=== PATIENT | female | born 1965 | race Caucasian/White ===

== ENCOUNTER 2018-11-04 08:31 | Day surgery (SDC) | payer OTHER ==
[2018-11-04] MEDS ORDERED: ENOXAPARIN SODIUM 40 MG/0.4 ML DISP.SYRIN SQ ONE (08:46)
[2018-11-04] MEDS ORDERED: SCOPOLAMINE HYDROBROMIDE 1.5MG/72HR PATCH TD ONE ×2 (08:46→08:48)
[2018-11-04] MEDS ORDERED: LACTATED RINGERS 1,000 ML IV ONE (08:47)
[2018-11-04] MEDS ORDERED: LEVALBUTEROL HCL 1.25 MG/3 ML AMPUL.NEB NEB ONE (08:47)
[2018-11-04] MEDS ORDERED: FAMOTIDINE 20 MG/2 ML VIAL ONE ×2 (08:47→08:48)
[2018-11-04] MEDS ORDERED: LACTATED RINGERS 1,000 ML IV.SOLN IV ONE ×2 (08:48)
[2018-11-04] MEDS ORDERED: ROCURONIUM BROMIDE 10 MG/ML 5ML VIAL ONE (08:48)
[2018-11-04] MEDS ORDERED: PROPOFOL 200 MG/20 ML VIAL IV ONE (08:48)
[2018-11-04] MEDS ORDERED: ACETAMINOPHEN 1,000 MG/100 ML INJ IV ONE (08:48)
[2018-11-04] MEDS ORDERED: SUGAMMADEX SODIUM 200 MG/2 ML VIAL IV ONE (08:48)
[2018-11-04] MEDS ORDERED: PROMETHAZINE HCL 25 MG/ML VIAL ONE ×2 (08:48→12:58)
[2018-11-04] MEDS ORDERED: HYDROmorphone HCL/PF 1 MG/ML VIAL ONE (08:48)
[2018-11-04] MEDS ORDERED: ONDANSETRON HCL/PF 4 MG/ 2ML VIAL ONE (08:48)
[2018-11-04] MEDS ORDERED: LIDOCAINE HCL 2% PF 100MG/5ML VIAL IJ ONE (08:48)
[2018-11-04] MEDS ORDERED: DESFLURANE 240 ML LIQUID IH ONE (08:48)
[2018-11-04] MEDS ORDERED: CLINDAMYCIN PHOSPHATE 900 MG/6 ML VIAL ONE (08:48)
[2018-11-04] MEDS ORDERED: DEXAMETHASONE SOD PHOS 4 MG/ML VIAL ONE (08:48)
[2018-11-04] MEDS ORDERED: FENTANYL CITRATE/PF 250 MCG/5 ML INJ. ONE (10:09)
[2018-11-04] MEDS ORDERED: MIDAZOLAM HCL 2 MG/2 ML VIAL ONE (10:09)
[2018-11-04] MEDS ORDERED: HYDROmorphone HCL/PF 2 MG/ML VIAL ONE (12:56)
[2018-12-05] MEDS ORDERED: MIDAZOLAM HCL 2 MG/2 ML VIAL ONE (10:05)
[2018-12-05] MEDS ORDERED: FENTANYL CITRATE/PF 250 MCG/5 ML INJ. ONE (10:05)
== END 2018-11-04 14:08 | disposition other institution (70) ==
LOC: OPSURG 08:31
PROVIDERS: ATTEND Surgery
DX: E66.01 Morbid (severe) obesity due to excess calories (principal); Z68.43 Body mass index [BMI] 50.0-59.9, adult; E11.9 Type 2 diabetes mellitus without complications; I10 Essential (primary) hypertension; G47.30 Sleep apnea, unspecified; K44.9 Diaphragmatic hernia without obstruction or gangrene
CPT/HCPCS: 43235; J1100; J1170; J1650; J2001; J2250; J2405; J2550; J2704; J7614; 43775; A9270-GY; J7120

== ENCOUNTER 2018-11-04 14:09 | Inpatient (IN) | payer OTHER ==
[2018-11-04] MEDS ORDERED: 0.9 % SODIUM CHLORIDE 1,000 ML IV ONE (14:14)
[2018-11-04] MEDS ORDERED: LEVALBUTEROL HCL 1.25 MG/3 ML AMPUL.NEB NEB PRN (14:18)
[2018-11-04] MEDS ORDERED: HYDROcodone /APAP 10/325 1 EACH TABLET PO PRN (14:18)
[2018-11-04] MEDS ORDERED: ACETAMINOPHEN 1,000 MG/100 ML INJ IV PRN (14:18)
[2018-11-04] MEDS ORDERED: PROMETHAZINE HCL 25 MG in 0.9 % SODIUM CHLORIDE 50 ML IV PRN (14:18)
[2018-11-04 14:41] VITALS: BMI 34.2
[2018-11-04 14:52] LABS: MEAN CORPUSCULAR HEMOGLOBIN 28.3 pg (28.0-34.0); MONOCYTES % 1.1 % (0.0-11.0)
[2018-11-04 14:53] LABS: BASOPHILS % 0.3 (0.0-1.5); EOSINOPHILS % 1.2 % (0.0-6.8); NEUTROPHILS # 11.5 # k/uL (1.4-7.7)
[2018-11-04] MEDS: 0.9 % SODIUM CHLORIDE 1,000 ML IV SCH ×2 (15:35→20:56)
--- NOTE | 2018-11-04 16:49 | History and Physical Report ---
History of Present Illnes - History of Present Illness Reason for Visit: S/P Gastric Sleeve History of Present Illness: Patient is a 53-year-old white female who has tried multiple diets and exercise programs with no success. Patient and surgeon decided to proceed with gastric sleeve procedure. Procedure went well with minor complication resulting in some bleeding- patient will be admitted and monitored s/p surgical intervention. 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, Seizure Gastrointestinal: Irritable bowel disease, Other (Fatty liveer) Heme/Onc: denies: Anemia NOS, Iron deficiency anemia Hepatobiliary: denies: Hep A/B/C Psych: Depression Musculoskeletal: Osteoarthritis (hips) Rheumatologic: Fibromyalgia Infectious Disease: denies: HIV ENT: denies: Sinusitis Renal/: denies: Acute renal failure Endocrine: Diabetes, obesity Dermatology: denies: Cellulitis Grav: 6 Para: 4 Ab: 2 - Past Surgical History Past Surgical History: Appendectomy, Cholecystectomy, Hysterectomy, Hernia Repair (ventral), Other (carpal tunnel release) - Past Family History Mother Family History: Cancer, DM, Hypertension Father Family History: Hyperlipidemia, Hypertension - Past Social History Smoke: 2 packs per day, Quit (11 years ago) Alcohol: None Drugs: None Lives: With Family Domestic Violence: Negative - Health Maintenance Health Maintenance: Influenza Vaccine, Mammogram Influenza Vaccine: Current for this Influenza Season Pneumonia Vaccine: No Resuscitation Status: Resusciation Status Resuscitation Status Full Code - Unable to Obtain History Unable to Obtain: No Review of Systems - Review of Systems Constitutional: negative: Fever, Chills Eyes: negative: pain, vision change ENT: negative: Ear Pain, Nose Pain, Throat Pain Respiratory: negative: Cough, Shortness of Breath Cardiovascular: negative: Chest Pain, Light Headedness Gastrointestinal: Nausea, Abdominal Pain (s/p gastric sleeve). negative: Vomiting Genitourinary: negative: Dysuria Musculoskeletal: negative: Shoulder Pain, Back Pain Skin: negative: Rash Neurological: Weakness, Incoordination (still drowsy s/p surgery) - Medications/Allergies Allergies/Adverse Reactions: Allergies Allergy/AdvReac Type Severity Reaction Status Date / Time aspirin Allergy Verified 11/04/18 14:06 codeine Allergy Verified 11/04/18 14:06 Penicillins Allergy Verified 11/04/18 14:06 IV Contrast Allergy Uncoded 11/04/18 14:06 Current Inpatient Medications: Current Inpatient Medications Acetaminophen (Ofirmev) 1,000 mg IV Q6H PRN PRN Reason: For Mild Breakthrough Pain Stop: 11/08/18 14:17 Clindamycin Phosphate (Clindamycin-D5w 600 Mg/50 Ml) 600 mg IV Q8H [facility]MA Stop: 11/05/18 02:31 Sodium Chloride (Normal Saline) 1,000 mls @ 150 mls/hr IV Q8H [facility]MA Last Admin: 11/04/18 15:35 Dose: 150 mls/hr Pantoprazole Sodium 40 mg/ (Sodium Chloride) 50 mls @ 100 mls/hr IV DAILY CHEMA Promethazine HCl 25 mg/ Sodium (Chloride) 51 mls @ 200 mls/hr IV Q6H PRN PRN Reason: Nausea / Vomiting Stop: 11/08/18 14:17 Levalbuterol HCl (Xopenex) 1.25 mg NEB Q4H PRN PRN Reason: SOA, Dyspnea, or Wheezing Stop: 11/08/18 14:17 Miscellaneous (Chem Sticks) 1 each MC Q6H [facility] Last Admin: 11/04/18 15:31 Dose: 1 each Morphine Sulfate (Morphine Sulfate) 4 mg IJ Q4H PRN PRN Reason: Severe Pain Only Ondansetron HCl (Zofran 4 Mg/2 Ml) 4 mg IVP Q6H PRN PRN Reason: Nausea / Vomiting Stop: 11/08/18 14:17 Exam - Exam Vital Signs: Vital Signs (72 hours) 11/04/18 11/04/18 14:16 14:18 Respiratory 20 Rate O2 Sat by Pulse 97 Oximetry General: Oriented to Person, Oriented to Place, Mild distress (still very drowsy s/p surgery), Morbidly Obese HEENT: Atraumatic, PERRLA, Mouth Mucous membr. moist/[place], Nose Mucous membr. moist/[place] Neck: Normal Range of Motion. No: Stridor Lungs: Clear to auscultation, Normal air movement. No: Wheezes, Rales Cardiovascular: Regular rate, Normal S1, Normal S2 Abdomen: Soft, No tenderness, Decreased Bowel Sounds. No: Distended, Rigid Integumentary: Warm, Dry, Pale (pt was initially clammy and cool on arrival to unit- has improved) Extremities: No edema, Normal pulses, No tenderness/swelling Neurological: Normal gait (pt has ambulated twice with staff), Strength Equal Bilat, Sensation intact Psych/Mental Status: Mental status NL (flat affect- still very drowsy) - Laboratory Results Laboratory Results: Laboratory Results 11/04/18 14:40 WBC 12.80 H RBC 4.55 Hgb 12.9 Hct 38.4 MCV 84.0 MCH 28.3 MCHC 33.6 RDW 13.4 Plt Count 104 L Neut % (Auto) 89.8 H Lymph % (Auto) 7.6 L [place] % (Auto) 1.1 Eos % (Auto) 1.2 Baso % (Auto) 0.3 Neut # (Auto) 11.5 H Lymph # (Auto) 1.0 [place] # (Auto) 0.1 Eos # (Auto) 0.2 Baso # (Auto) 0.0 Assessment/Plan - Assessment/Plan (1) Depression Status: Acute Current Visit: Yes Qualifiers: Depression Type: unspecified Qualified Code(s): F32.9 - Major depressive disorder, single episode, unspecified Assessment: Stable on home meds Plan: Will hold medications during admission (2) Fatty liver Status: Acute Current Visit: Yes Plan: Will monitor vital signs and lab work (3) Fibromyalgia Status: Acute Current Visit: Yes Assessment: Stable on home medications Plan: Will hold meds during admission (4) Hypertension Status: Acute Current Visit: Yes Qualifiers: Hypertension type: essential hypertension Qualified Code(s): I10 - Essential (primary) hypertension Assessment: Stable on home meds Plan: Will hold medications at this time and monitor blood pressures closely (5) Irritable bowel syndrome (IBS) Status: Acute Current Visit: Yes Qualifiers: Irritable bowel syndrome type: unspecified Qualified Code(s): K58.9 - Irritable bowel syndrome without diarrhea Assessment: Stable on home meds Plan: Will monitor I & Os, will hold home medications at this time (6) Migraines Status: Acute Current Visit: Yes Qualifiers: Migraine type: unspecified Status migrainosus presence: without status migrainosus Intractability: intractable Qualified Code(s): G43.919 - Migraine, unspecified, intractable, without status migrainosus Assessment: stable on home meds Plan: Will hold home meds at this time and monitor symptoms (7) Morbid obesity due to excess calories Status: Acute Current Visit: Yes Assessment: S/P Gastric Sleeve (8) Non-insulin treated type 2 diabetes mellitus Status: Acute Current Visit: Yes Assessment: Will monitor s/sx of hypo/hyperglycemia- patient states her diabetes is diet controlled Plan: Will monitor blood sugars every 6 hours (9) S/P gastric surgery Status: Acute Current Visit: Yes Assessment: LCTA, Legs are without tenderness/pain, skin is pale, cool, dry- patient not experiencing any vomiting or notifying pain Plan: The plan is to monitor incisions for infections, patient will ambulate frequently & wear SCDs while in bed (we will hold Lovenox and Toradol per surgeon d/t bleed), patient will use IS to prevent resp. illnesses, Will start PPI IV, and pt will receive IVF until she can tolerate oral. We will transition pain meds from IV to oral as soon as possible. VTE Assessment - RISK FACTOR SCORE VTE RISK FACTOR SCORES: AGE 40-60 YEARS, OBESITY, MAJOR SURGERY/ANESTHESIA TIME > 1 HOUR (Will have pt up and ambulating, will wear SCDs while in bed.)
[2018-11-04] MEDS: CLINDAMYCIN PHOSPHATE/D5W 600 MG/50 ML PIGGYBACK IV SCH (17:49)
[2018-11-04] MEDS: ONDANSETRON HCL/PF 4 MG/ 2ML VIAL IVP PRN (20:44)
[2018-11-04] MEDS: MORPHINE SULFATE 5 MG/ML ML IJ PRN (21:25)
[2018-11-05] MEDS: MORPHINE SULFATE 5 MG/ML ML IJ PRN ×4 (01:05→21:24)
[2018-11-05] MEDS: ONDANSETRON HCL/PF 4 MG/ 2ML VIAL IVP PRN ×3 (04:31→21:23)
[2018-11-05] MEDS: CLINDAMYCIN PHOSPHATE/D5W 600 MG/50 ML PIGGYBACK IV SCH (04:37)
[2018-11-05] MEDS ORDERED: PANTOPRAZOLE SODIUM INJ. 40 MG VIAL ONE (07:40)
[2018-11-05] MEDS ORDERED: 0.9 % SODIUM CHLORIDE 50 ML IV ONE ×2 (07:41→09:13)
[2018-11-05 07:50] LABS: BASOPHILS % 0.2 (0.0-1.5); EOSINOPHILS % 0.9 % (0.0-6.8); MEAN CORPUSCULAR HEMOGLOBIN 28.3 pg (28.0-34.0); MONOCYTES % 4.8 % (0.0-11.0); NEUTROPHILS # 9.8 # k/uL (1.4-7.7)
[2018-11-05] MEDS: PANTOPRAZOLE SODIUM 40 MG in 0.9 % SODIUM CHLORIDE 50 ML IV SCH (08:35)
[2018-11-05] MEDS: 0.9 % SODIUM CHLORIDE 1,000 ML IV SCH ×3 (08:40→21:42)
--- NOTE | 2018-11-05 08:58 | Inpatient Progress Note ---
Subjective - Required Recertification Statement I anticipate X number of days because-include discharge plan: 1 - Review of Systems Subjective: Patient doing ok until she took po hydrocodone. She tells me that norco/percocet have always made her nauseated. Had even been on oxycontin 80 mg tid for pain but it didn't work. So her PCP has her on suboxone (SL strips) for pain and has been working well. Cardiovascular: Denies: Chest Pain, Palpitations Objective - Exam Vitals and I&O: Vital Signs Temp 98.0 F 11/05/18 06:00 Pulse 54 L 11/05/18 06:00 Resp 18 11/05/18 06:00 BP 130/74 11/05/18 06:00 Pulse Ox 93 11/05/18 06:00 Intake & Output 11/04/18 11/04/18 11/05/18 11:59 23:59 11:59 Intake Total 1600 700 Output Total 1301 800 Balance 299 -100 Weight 87.543 kg Intake: IV 1150 600 Medications 400 right ac space 750 600 Oral 450 100 Output: Urine 1301 800 Other: Voiding Method Toilet Toilet # Voids 450 1 # Bowel Movements 0 General: Alert, Oriented to Person, Oriented to Place, Oriented to Time, Coop erative, No acute distress Lungs: Clear to auscultation, Normal air movement, Speaks full Sentences Cardiovascular: Regular rate Abdomen: Normal bowel sounds, Soft, Other (Bandages C/D/I; Normal Bowel sounds.) - Results Results: Laboratory Results WBC 11.40 K/ul (4.00-12.00) 11/05/18 03:45 RBC 4.47 M/ul (3.90-5.20) 11/05/18 03:45 Hgb 12.6 g/dL (12.0-16.0) 11/05/18 03:45 Hct 37.4 % (34.5-46.5) 11/05/18 03:45 MCV 84.0 fl (80.0-100.0) 11/05/18 03:45 MCH 28.3 pg (28.0-34.0) 11/05/18 03:45 MCHC 33.8 g/dL (30.0-36.0) 11/05/18 03:45 RDW 14.0 % (11.3-14.3) 11/05/18 03:45 Plt Count 241 K/mm3 (130-400) 11/05/18 03:45 Neut % (Auto) 85.9 % (39.0-79.0) H 11/05/18 03:45 Lymph % (Auto) 8.2 % (16.0-50.0) L 11/05/18 03:45 [place] % (Auto) 4.8 % (0.0-11.0) 11/05/18 03:45 Eos % (Auto) 0.9 % (0.0-6.8) 11/05/18 03:45 Baso % (Auto) 0.2 (0.0-1.5) 11/05/18 03:45 Neut # (Auto) 9.8 # k/uL (1.4-7.7) H 11/05/18 03:45 Lymph # (Auto) 0.9 # k/uL (0.6-4.0) 11/05/18 03:45 [place] # (Auto) 0.6 # k/uL (0.0-0.9) 11/05/18 03:45 Eos # (Auto) 0.1 # k/uL (0.0-0.6) 11/05/18 03:45 Baso # (Auto) 0.0 # k/uL (0.0-0.5) 11/05/18 03:45 Assessment/Plan - Assessment/Plan (1) Hypertension Status: Acute Current Visit: Yes Qualifiers: Hypertension type: essential hypertension Qualified Code(s): I10 - Essential (primary) hypertension Plan: Stable on no meds. (2) Non-insulin treated type 2 diabetes mellitus Status: Acute Current Visit: Yes Plan: BS stable at 150-96. (3) S/P gastric surgery Status: Acute Current Visit: Yes Plan: Will do IV morphine for pain control while in hospital. Patient will go back to suboxone upon discharge. (4) Bradycardia Status: Acute Current Visit: Yes Plan: Patient is asymptomatic. Will get EKG and labs. Watch closely.
[2018-11-05 10:06] LABS: eGFR (Non-African) > 60
[2018-11-06] MEDS: MORPHINE SULFATE 5 MG/ML ML IJ PRN (01:47)
[2018-11-06] MEDS: 0.9 % SODIUM CHLORIDE 1,000 ML IV SCH (03:02)
[2018-11-06] MEDS: ONDANSETRON HCL/PF 4 MG/ 2ML VIAL IVP PRN (03:13)
[2018-11-06] MEDS: PANTOPRAZOLE SODIUM 40 MG in 0.9 % SODIUM CHLORIDE 50 ML IV SCH (07:58)
--- NOTE | 2018-11-06 08:13 | Discharge Summary ---
Discharge Summary - Discharge Sumary History of Present Illness: Patient is a 53-year-old white female who has tried multiple diets and exercise programs with no success. Patient and surgeon decided to proceed with gastric sleeve procedure. Procedure went well with minor complication resulting in some bleeding- patient will be admitted and monitored s/p surgical intervention. Condition at Discharge: Stable Home Medications: Ambulatory Orders Medication Instructions Recorded Biotin 10,000 mcg PO DAILY 11/04/18 Buprenorphine HCl/Naloxone HCl 1 each SL BID 11/04/18 [Buprenorphin-Naloxon 8-2 mg Sl] Methylphenidate HCl 10 mg PO TID 11/04/18 Pnv No.95/Ferrous Fum/Folic AC 1 each PO DAILY 11/04/18 [ Vitamin Tablet] Sertraline HCl [Zoloft] 100 mg PO DAILY 11/04/18 Triazolam 0.25 mg PO HS 11/04/18 Consultations this Visit: None Procedures this Visit: Other (gastric sleeve) Allergies/Adverse Reactions: Allergies Allergy/AdvReac Type Severity Reaction Status Date / Time aspirin Allergy Verified 11/04/18 14:06 codeine Allergy Verified 11/04/18 14:06 Penicillins Allergy Verified 11/04/18 14:06 IV Contrast Allergy Uncoded 11/04/18 14:06 Patient Problems: Current Active Problems Problem Status Onset Bradycardia Acute Depression Acute Fatty liver Acute Fibromyalgia Acute Hypertension Acute Irritable bowel syndrome (IBS) Acute Migraines Acute Morbid obesity due to excess calories Acute Non-insulin treated type 2 diabetes mellitus Acute S/P gastric surgery Acute Hospital Course: Patient did well postop. Ambulation, SCD, lovenox, and IS utilized. Patient revealed oral pain meds made her ill so we used morphine until discharge when she will resume her home suboxone. BS running 90-120 with no meds. She was not on antihypertensives before surgery. Will continue this on d/c. Post op her HR was in the upper 40's. EKG showed sinus skyler. CArdiac labs were normal. HR up to 50's upon discharge. Surgery believes due to her sleep apnea and the affects of the anesthesia. Discharged home in good condition.
[2018-11-06] MEDS ORDERED: MORPHINE SULFATE 10 MG/ML VIAL IVP ONE (10:11)
[2018-11-06 10:49] VITALS: BP 130/74
== END 2018-11-06 10:35 | disposition home or self-care (01) | DRG 641 ==
LOC: SOUTH 14:09
PROVIDERS: ADMIT Nurse Practitioner Family; ATTEND Nurse Practitioner Family
DX: E66.01 Morbid (severe) obesity due to excess calories (principal); K44.9 Diaphragmatic hernia without obstruction or gangrene; Z68.42 Body mass index [BMI] 45.0-49.9, adult; E11.9 Type 2 diabetes mellitus without complications; I10 Essential (primary) hypertension; G47.30 Sleep apnea, unspecified; R11.0 Nausea; R00.1 Bradycardia, unspecified
CPT/HCPCS: 36415; 80048; 82550; 82553; 84443; 84484; 85025; 99231; 99238; J2270; J2405; J2550; J7030; S1016